=== PATIENT | female | born 1975 | race American Indian/Alaskan Native ===

== ENCOUNTER 2018-12-29 22:05 | Emergency (ER) | payer OTHER ==
[2018-12-29] MEDS ORDERED: IBUPROFEN 800 MG TAB PO ONE (23:08)
[2018-12-29] MEDS ORDERED: CYCLOBENZAPRINE 10 MG TAB PO ONE (23:09)
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
[2018-12-30 02:02] VITALS: BP 110/64
== END 2018-12-30 01:00 | disposition home or self-care (01) ==
LOC: ED 22:05
DX: S16.1XXA Strain of muscle, fascia and tendon at neck level, initial encounter (principal); S09.90XA Unspecified injury of head, initial encounter; Y08.89XA Assault by other specified means, initial encounter; Y93.89 Activity, other specified; Y92.69 Other specified industrial and construction area as the place of occurrence of the external cause; Y99.8 Other external cause status
CPT/HCPCS: 70450; 72125